=== PATIENT | female | born 1995 | race Caucasian/White ===

== ENCOUNTER 2018-05-27 13:09 | Emergency (ER) | payer OTHER, MEDICAID ==
[2018-05-27 15:06] LABS: ADD MAN DIFF? NO
[2018-05-27 15:16] LABS: BASOPHILS % 0.3 % (0.0-2.0); EOSINOPHILS # 0.2 10^3/ul (0.0-0.5); EOSINOPHILS % 2.4 % (0.0-7.0); HEMATOCRIT 40.8 % (37.0-47.0); LYMPHOCYTES # 2.1 10^3/ul (0.8-2.9); LYMPHOCYTES % 21.5 % (15.0-51.0); MEAN CORPUSCULAR HEMOGLOBIN 27.7 pg (29.0-33.0); MEAN CORPUSCULAR HGB CONC 31.9 g/dl (32.0-37.0); MEAN PLATELET VOLUME 10.7 fl (7.4-10.4); MONOCYTE # 0.5 10^3/ul (0.3-0.9); NEUTROPHIL # 6.8 10^3/ul (1.6-7.5); NEUTROPHILS % 70.3 % (39.0-77.0); PLATELET COUNT 279 10^3/UL (140-415); RED BLOOD COUNT 4.69 10^6/ul (4.20-5.40); RED CELL DISTRIBUTION WIDTH 14.2 % (11.5-14.5)
[2018-05-27 15:16] LABS: WHITE BLOOD COUNT 9.6 10^3/ul (4.8-10.8)
[2018-05-27 15:18] LABS: MODE ROOM AIR; MetHgb Venous 0.3 %; Sample Type Blood venous; Site VENOUS LINE; Venous COHb 0.5 %; Venous Fraction OxyHgb 62.8 %; Venous Oxygen Sat 63.3 mmHG (55.0-75.0); Venous Total Hemglobin 13.5 g/dl
[2018-05-27 15:38] LABS: ANION GAP 15 (8-16); BLOOD UREA NITROGEN 12 mg/dl (7-20); CALCIUM 9.8 mg/dl (8.4-10.2); CARBON DIOXIDE 26 mmol/L (21-31); CHLORIDE 102 mmol/L (97-110); CREATININE 0.53 mg/dl (0.44-1.00); GLUCOSE 225 mg/dl (70-220); MAGNESIUM 2.1 mg/dl (1.7-2.5); PHOSPHORUS 3.6 mg/dl (2.5-4.9); POTASSIUM 4.1 mmol/L (3.5-5.1); SODIUM 139 mmol/L (135-144)
[2018-05-27] MEDS: SOD CHLORIDE 0.9% 1,000 ML IV (15:48)
== END 2018-05-27 17:56 | disposition home or self-care (01) ==
LOC: E/R 13:09
DX: E11.65 Type 2 diabetes mellitus with hyperglycemia (principal)
CPT/HCPCS: 36415; 80048; 81025; 82803; 82962; 83735; 84100; 85025; 99284-25